=== PATIENT | female | born 1975 | race Caucasian/White ===

== ENCOUNTER 2019-09-15 22:39 | Emergency (ER) | payer SELFPAY ==
[2019-09-15 23:16] LABS: Basophils # 0.1 10^3/uL (0.0-0.1); Basophils % 0.5 %; Eosinophils # 0.2 10^3/uL (0.0-0.8); Hematocrit 45.6 % (37.0-47.0); Hemoglobin 15.2 g/dL (11.5-15.3); Lymphocytes # 3.5 10^3/uL (0.8-4.8); Lymphocytes % 33.6 %; Mean Corpuscular HGB Conc 33.3 g/dL (30.0-36.0); Mean Corpuscular Hemoglobin 32.6 pg (28.0-34.0); Mean Corpuscular Volume 97.9 fL (81-99); Mean Platelet Volume 9.7 fL (7.4-10.4); Monocytes # 0.8 10^3/uL (0.2-0.9); Monocytes % 7.4 %; Neutrophils % 56.2 %; Nucleated Red Blood Cells % 0 %; Platelet Count 274 10^3/cmm (130-400); Red Blood Count 4.66 10^6/uL (4.1-5.3); Red Cell Distribution Width 13.2 % (12.1-15.1); White Blood Count 10.5 10^3/uL (4.0-10.0)
[2019-09-15 23:28] LABS: Alanine Aminotransferase 10 U/L (0-33); Albumin Level 4.4 g/dL (3.5-5.2); Alkaline Phosphatase 71 IU/L (35-105); Anion Gap 14.9 (5-19); Aspartate Amino Transferase 14 U/L (0-32); Blood Urea Nitrogen 9 mg/dL (6-20); Calcium 9.1 mg/dL (8.5-10.5); Carbon Dioxide 25 mmol/L (22-29); Chloride 96 mmol/L (98-107); Globulin 2.8 g/dL (1.3-4.6); Glomerular Filtration Rate 90.1 mL/min (90-130); Glucose 91 mg/dL (65-115); Lipase 48 U/L (13-60); Osmolality Calculated 270 mOsm/kg (285-295); Potassium 3.9 mmol/L (3.5-5.1); Sodium 132 mmol/L (136-145); Total Bilirubin 0.2 mg/dL (0.15-1.2); Total Protein 7.2 g/dL (6.6-8.7)
== END 2019-09-16 00:04 ==
PROVIDERS: Emergency Provider Emergency Medicine
DX: Z53.21 Procedure and treatment not carried out due to patient leaving prior to being seen by health care provider (principal)
CPT/HCPCS: 36415; 80053; 83690; 85025; 99281

== ENCOUNTER 2022-02-25 12:41 | Emergency (ER) | payer SELFPAY ==
[2022-02-25 14:18] VITALS: BP 195/105; PULSE 86; RESP 14; TEMP 36.7; O2SAT 99
--- NOTE | 2022-02-25 14:39 | ED_ITS ---
HPI - General Adult General: Chief complaint: General Medical Stated complaint: right side pain Time Seen by Provider: 02/25/22 14:34 History of Present Illness: Patient is a 46-year-old female comes to the ED with abdominal pain. Symptoms started approximately 10 days ago. Pain is located in the right upper quadrant of the abdomen. She rates her pain currently a 2 out of 10. She states that the pain comes and goes and fluctuates in intensity. Denies any worsening or improving factors. Pain will radiate to the middle of her back and up into her right upper back as well. Endorses having episodes of nausea with pain but denies any vomiting. Past surgical history of partial hysterectomy. Associated symptoms: Reports nausea; Deny chest pain, dyspnea, headache(s), rash, palpitations or vomiting Review of Systems Const: Denies: fever(s), chills or fatigue Eyes: Denies: change in vision or eye discomfort ENMT: Denies: throat pain, odynophagia, nasal discharge or nasal congestion Card: Denies: chest pain, palpitations, edema, swelling of feet/ankles, dyspnea on exertion or orthopnea Resp: Denies: dyspnea, productive cough or non-productive cough GI: Reports: abdominal pain and nausea; Denies: vomiting, diarrhea, constipation or hematochezia : Denies: flank pain, dysuria or hematuria Musc: Denies: neck pain, back pain or extremity swelling Skin/Breast: Denies: rash or new lesions Neuro: Denies: headache(s), numbness in extremities or weakness in extremities PFS ED PFSH: Medical History Chest wall pain Hypertension Surgical History History of partial hysterectomy Family History Mother Heart murmur Father Diabetes Other Cancer Hypertension Myocardial infarct Denies family history of CAD (coronary artery disease) Clotting disorder Dementia Hyperlipidemia Psychiatric illness Chronic kidney disease (CKD) Anesthesia complication Bleeding disorder Lung disease Stroke Social History (Updated 02/06/22 @ 13:05 by Milena Rodriguez LPN) Smoking and tobacco status: current every day smoker cigarettes Packs smoked per day: 0.75 [ Other cigarette details: 3/4PPD, 28PY] Alcohol intake: current Alcohol intake frequency: few times a week Desire information about alcohol rehabilitation?: No Desire information about substance/drug rehabilitation?: No Lives independently: Yes Marital status: Number of children: 2 Current occupational status: employed 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 gender identity: Female Female Reproductive History: Date of last menstrual period: 02/17/21 Para: 2 Physical Exam Const: COMMON NORMALS: no acute distress and patient oriented x3 GENERAL APPEARANCE: cooperative and comfortable HENMT: COMMON NORMALS: normocephalic HEAD & SCALP: normocephalic MOUTH: Normal oral and palatal mucosa present THROAT: posterior oropharynx normal and uvula midline Neck/C-Spine: COMMON NORMALS: supple GENERAL: Yes normal visual inspection Resp: COMMON NORMALS: normal respiratory effort, No retractions, No use of accessory muscles and clear to auscultation bilaterally AUSCULTATION: clear to auscultation bilaterally Cardio: COMMON NORMALS: regular rate, regular rhythm, S1 normal heart sound present, S2 normal heart sound present, No gallops present (Cardio), No clicks present (Cardio), No murmurs present (Cardio) and Peripheral pulses 2+ throughout RATE: regular rate RHYTHM: regular rhythm HEART SOUNDS: S1 normal heart sound present and S2 normal heart sound present PERIPHERAL PULSES: Peripheral pulses 2+ throughout GI: COMMON NORMALS: Normal to inspection, nondistended, normoactive bowel sounds present, Soft to palpation and no masses PALPATION: Yes Soft to p alpation and Yes Tenderness to palpation present (GI) Details: RUQ : COMMON NORMALS: Yes no CVA tenderness BLADDER/KIDNEY EXAM: Yes no CVA tenderness Back/Pelvis: COMMON NORMALS: no CVA tenderness Extremity: COMMON NORMALS: normal to inspection Neuro: COMMON NORMALS: patient oriented x3 GAIT: Yes Normal gait present Skin: GENERAL SKIN EXAM: dry skin Course Vital Signs: Vital signs: Vital Signs Temperature 98.0 F 02/25/22 14:18 Pulse Rate 86 02/25/22 17:20 Respiratory Rate 16 02/25/22 17:20 Blood Pressure 157/111 02/25/22 17:20 Pulse Oximetry 94 02/25/22 17:20 Oxygen Delivery Me thod 02/25/22 14:18 [facility] - General Adult Medical Decision Making Patient is a 46-year-old female comes to the ED with abdominal pain. Symptoms started approximately 10 days ago. Pain is located in the right upper quadrant of the abdomen. She rates her pain currently a 2 out of 10. She states that the pain comes and goes and fluctuates in intensity. Denies any worsening or improving factors. Vitals are stable. Some mild right upper quadrant tenderness but rest of exam is benign. Patient appears nontoxic and in no acute distress. Labs are unremarkable. Ultrasound gallbladder showed no acute findin gs. Patient was diagnosed with abdominal pain and was stable for discharge home. She was told to follow-up with PCP in the next week for reevaluation. Patient understood and agreed with plan. Lab Data I reviewed the patient's lab results. 02/25/22 15:00 02/25/22 15:20 Radiology Impressions Gallbladder Ultrasound 02/25/22 15:27 IMPRESSION: No acute findings. Laboratory Results WBC 9.5 10^3/uL (4.0-10.0) 02/25/22 15:00 RBC 5.20 10^6/uL (4.1-5.3) 02/25/22 15:00 Hgb 16.5 g/dL (11.5-15.3) H 02/25/22 15:00 Hct 49.4 % (37.0-47.0) H 02/25/22 15:00 MCV 95.0 fl (81-99) 02/25/22 15:00 MCH 31.7 pg (28.0-34.0) 02/25/22 15:00 MCHC 33.4 g/dL (30.0-36.0) 02/25/22 15:00 RDW 13.2 % (12.1-15.1) 02/25/22 15:00 Plt Count 283 10^3/cmm (130-400) 02/25/22 15:00 MPV 10.0 fL (7.4-10.4) 02/25/22 15:00 Neut % (Auto) 70.2 % 02/25/22 15:00 Lymph % (Auto) 22.3 % 02/25/22 15:00 [place] % (Auto) 6.1 % 02/25/22 15:00 Eos % (Auto) 0.9 % 02/25/22 15:00 Baso % (Auto) 0.3 % 02/25/22 15:00 Neut # (Auto) 6.69 10^3/uL (1.8-7.7) 02/25/22 15:00 Lymph # (Auto) 2.1 10^3/uL (0.8-4.8) 02/25/22 15:00 [place] # (Auto) 0.6 10^3/uL (0.2-0.9) 02/25/22 15:00 Eos # (Auto) 0.1 10^3/uL (0.0-0.8) 02/25/22 15:00 Baso # (Auto) 0.0 10^3/uL (0.0-0.1) 02/25/22 15:00 Nucleated RBC % (auto) 0 % 02/25/22 15:00 Nucleated RBCs # 0.0 /100WBC 02/25/22 15:00 Sodium 135 mmol/L (136-145) L 02/25/22 15:20 Potassium 4.0 mmol/L (3.5-5.1) 02/25/22 15:20 Chloride 98 mmol/L (98-107) 02/25/22 15:20 Carbon Dioxide 25 mmol/L (22-29) 02/25/22 15:20 Anion Gap 16.0 (5-19) 02/25/22 15:20 BUN 12 mg/dL (6-20) 02/25/22 15:20 Creatinine 0.5 mg/dL (0.5-0.9) 02/25/22 15:20 GFR Calculation 131.7 mL/min (90-130) H 02/25/22 15:20 Glucose 85 mg/dL (65-115) 02/25/22 15:20 Calculated Osmolality 279 mOsm/kg (285-295) L 02/25/22 15:20 Calcium 9.0 mg/dL (8.5-10.5) 02/25/22 15:20 Total Bilirubin 0.2 mg/dL (0.15-1.2) 02/25/22 15:20 AST 13 U/L (0-32) 02/25/22 15:20 ALT 13 U/L (0-33) 02/25/22 15:20 Alkaline Phosphatase 84 U/L (35-105) 02/25/22 15:20 Total Protein 7.9 g/dL (6.6-8.7) 02/25/22 15:20 Albumin 4.6 g/dL (3.5-5.2) 02/25/22 15:20 Globulin 3.3 g/dL (1.3-4.6) 02/25/22 15:20 Lipase 44 U/L (13-60) 02/25/22 15:20 Urine Color Yellow (Yellow) 02/25/22 15:00 Urine Appearance Clear (CLEAR) 02/25/22 15:00 Urine pH 6.5 (5-7) 02/25/22 15:00 Ur Specific [place] 1.010 (1.005-1.030) 02/25/22 15:00 Urine Protein Neg (Negative) 02/25/22 15:00 Urine Glucose (UA) Norm (Normal) 02/25/22 15:00 Urine Ketones Negative (Negative) 02/25/22 15:00 Urine Blood Neg (Negative) 02/25/22 15:00 Urine Nitrate Negative (Negative) 02/25/22 15:00 Urine Bilirubin Neg (Negative) 02/25/22 15:00 Urine Urobilinogen Neg mg/dL (Negative) 02/25/22 15:00 Ur Leukocyte Esterase Negative (Negative) 02/25/22 15:00 Discharge Plan Discharge Patient Disposition: Home Clinical Impression: Abdominal pain Qualifiers: Abdominal location: right upper quadrant Qualified Code(s): R10.11 - Right upper quadrant pain Condition: Stable Prescriptions: New cyclobenzaprine 10 mg tablet 10 mg PO BID PRN (Reason: muscle spasms and pain) Qty: 12 0RF No Action Ozempic 0.25 mg or 0.5 mg(2 mg/1.5 mL) pen injector 0.25 mg SUBCUT Q7D Rx Instructions: 0.25mg weekly x 4 weeks,then 0.5mg weekly x 4 weeks, 1mg weekly x 4 weeks,then 1.7mg weekly x 4 weeks acetaminophen 325 mg Tablet 325 mg PO QID PRN (Reason: Pain) Discharge Orders: Discharge ED (Routine); Ordered 02/25/22 Ordered By: Rob Chauhan Discharge Diet: Regular Discharge Activity: Resume usual activity Patient Instructions: Abdominal Pain (ED) Activity Restrictions/Additional Instructions: Follow-up with medical provider as directed in the next 7 to 10 days for re evaluation. Take medications as prescribed. Return to the ER or your medical provider if condition worsens. Please read and understand discharge instructions. Thank you for choosing [facility] for your healthcare needs today. Please realize this is an emergency room and that we are providing you with a medical screening exam and this may not be complete and all inclusive of all the testing and or work up that you may need to determine your ailment or severity of your illness. It is very important that you follow up as instructed or that you return to the Emergency Department should you have concerns or if your condition changes or worsens in any way. Coding Level of Care Code ED Drivability Technician for Sima Fwamber Exam Comprehensive
[2022-02-25 15:16] LABS: Basophils % 0.3 %; Eosinophils # 0.1 10^3/uL (0.0-0.8); Eosinophils % 0.9 %; Hematocrit 49.4 % (37.0-47.0); Hemoglobin 16.5 g/dL (11.5-15.3); Lymphocytes # 2.1 10^3/uL (0.8-4.8); Lymphocytes % 22.3 %; Mean Corpuscular HGB Conc 33.4 g/dL (30.0-36.0); Mean Corpuscular Hemoglobin 31.7 pg (28.0-34.0); Monocytes # 0.6 10^3/uL (0.2-0.9); Monocytes % 6.1 %; Neutrophils # 6.69 10^3/uL (1.8-7.7); Neutrophils % 70.2 %; Nucleated Red Blood Cells % 0 %; Platelet Count 283 10^3/cmm (130-400); Red Cell Distribution Width 13.2 % (12.1-15.1); White Blood Count 9.5 10^3/uL (4.0-10.0)
[2022-02-25 15:17] LABS: Add Urine Microscopic? NO; Charge for UA Resulting for Rev
--- NOTE | 2022-02-25 15:22 | ECG_ITS ---
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 Measurements Intervals [place] Rate: 68 P: 49 FL: 158 QRS: 60 QRSD: 82 T: 43 QT: 387 QTc: 413 Interpretive Statements SINUS RHYTHM No previous ECG available for comparison Electronically Signed On 02-25-2022 20:32:59 OWNER PROFESSIONAL ENGINEER by Cinthia Bower M.D. [id number]
--- NOTE | 2022-02-25 15:27 | USR_ITS ---
PROCEDURE INFORMATION: Exam: US Abdomen, Limited; Right Upper Quadrant Exam date and time: 02/25/2022 4:01 PM Age: 46 years old Clinical indication: Abdominal pain; Generalized; Additional info: Ruq pain TECHNIQUE: Imaging protocol: Real time ultrasound of the abdomen with image documentation. Limited exam focused on the right upper quadrant. COMPARISON: No relevant prior studies available. FINDINGS: Liver: The liver shows no solid mass. No visualized ascites. Gallbladder: The gallbladder shows no stones and has no wall thickening. Biliary ducts: No evidence of intrahepatic biliary dilation. No CBD dilation. Pancreas: The pancreas is not well seen due to overlying bowel gas. It shows no focal abnormality, however. Right kidney: Unremarkable. No solid renal mass or hydronephrosis. US/US gall bladder [id number] IMPRESSION: No acute findings.
[2022-02-25 15:38] LABS: Bilirubin Urine Neg (Negative); Blood Urine Neg (Negative); Glucose Urine UA Norm (Normal); Ketones Urine Negative (Negative); Leukocyte Esterase Urine Negative (Negative); Nitrate Urine Negative (Negative); Protein Urine Neg (Negative); Urine Appearance Clear (CLEAR); Urine Color Yellow (Yellow); Urobilinogen Urine Neg (Negative); pH Urine 6.5 (5-7)
[2022-02-25 15:40] LABS: Alanine Aminotransferase 13 U/L (0-33); Albumin Level 4.6 g/dL (3.5-5.2); Alkaline Phosphatase 84 U/L (35-105); Aspartate Amino Transferase 13 U/L (0-32); Blood Urea Nitrogen 12 mg/dL (6-20); Carbon Dioxide 25 mmol/L (22-29); Chloride 98 mmol/L (98-107); Globulin 3.3 g/dL (1.3-4.6); Glomerular Filtration Rate 131.7 mL/min (90-130); Glucose 85 mg/dL (65-115); Lipase 44 U/L (13-60); Osmolality Calculated 279 mOsm/kg (285-295); Sodium 135 mmol/L (136-145); Total Bilirubin 0.2 mg/dL (0.15-1.2); Total Protein 7.9 g/dL (6.6-8.7)
[2022-02-25 17:20] VITALS: BP 157/111; PULSE 86; RESP 16; O2SAT 94
== END 2022-02-25 17:21 | disposition home or self-care (01) ==
PROVIDERS: Emergency Provider Physician Assistant
DX: R10.11 Right upper quadrant pain (principal); I10 Essential (primary) hypertension; F17.210 Nicotine dependence, cigarettes, uncomplicated
CPT/HCPCS: 76705; 80053; 81003; 83690; 85025; 93005; 99285

== ENCOUNTER 2022-09-25 19:58 | Emergency (ER) | payer SELFPAY ==
--- NOTE | 2022-09-25 19:59 | XRR_ITS ---
PROCEDURE INFORMATION: Exam: XR Chest Exam date and time: 09/25/2022 8:16 PM Age: 47 years old Clinical indication: Pain; Chest pressure; Additional info: Cp TECHNIQUE: Imaging protocol: Radiologic exam of the chest. Views: 1 view. COMPARISON: CR XR chest 1V [id number] 11/14/2018 11:46 AM FINDINGS: Lungs: Unremarkable. No consolidation. Pleural spaces: Unremarkable. No pleural effusion. No pneumothorax. Heart/Mediastinum: Unremarkable. No cardiomegaly. Bones/joints: Unremarkable. XR/XR chest 1V portable [id number] IMPRESSION: No acute findings.
--- NOTE | 2022-09-25 20:04 | ECG_ITS ---
[facility] Test Date: 2022-09-25 Pat Name: Peyton Mancuso Department: Room: Gender: Female Complaint Evaluation Supervisor: : 1975 Requested By: Yvette Mccabe Order Number: [id number] Willi MD: Polo Espinal M.D. Measurements Intervals [place] Rate: 92 P: 58 [place]: 137 QRS: 52 QRSD: 94 T: 51 QT: 346 QTc: 430 Interpretive Statements SINUS RHYTHM WITH SINUS ARRHYTHMIA Compared to ECG 02/25/2022 15:22:58 No significant changes Electronically Signed On 09-27-2022 9:28:15 CDT by Polo Espinal M.D. [id number]
[2022-09-25 20:06] VITALS: PULSE 94; RESP 16; TEMP 36.7; O2SAT 100; BMI 24.0
[2022-09-25 20:10] VITALS: BP 174/112
--- NOTE | 2022-09-25 20:21 | ED_ITS ---
HPI - Chest Pain General: Chief Complaint: Chest Pain Stated Complaint: chest pain,short of breath Time Seen by Provider: 09/25/22 20:09 Source: patient Mode of arrival: ambulatory Limitations: no limitations History of Present Illness: 47-year-old female who states that over the last 3 days she been having some intermittent chest pain states been a burning type pain states she also had some shortness of breath especially trying to take deep breaths. She denies any worsening improving factors she denies any pain currently states she is also had right upper quadrant abdominal pain over the last 7 months denies any abdominal pain currently but states she has had some pain there also over the last 2 days. Denies fever or cough. Associated symptoms: Reports abdominal pain; Deny dyspnea, fever(s), nausea or vomiting Review of Systems Const: Denies: fever(s), chills, body aches or change in appetite ENMT: Denies: throat pain or dental pain Card: Reports: chest pain Resp: Denies: dyspnea GI: Reports: abdominal pain; Denies: nausea, vomiting or diarrhea : Denies: dysuria Musc: Denies: neck pain or back pain Skin/Breast: Denies: rash Neuro: Denies: headache(s) PFSH ED PFSH: Medical History Chest wall pain Hypertension Surgical History History of partial hysterectomy Family History Mother Heart murmur Father Diabetes Other Cancer Hypertension Myocardial infarct Denies family history of CAD (coronary artery disease) Clotting disorder Dementia Hyperlipidemia Psychiatric illness Chronic kidney disease (CKD) Anesthesia complication Bleeding disorder Lung disease Stroke Social History Smoking and tobacco status: current every day smoker cigarettes Packs smoked per day: 0.75 [ Other cigarette details: 3/4PPD, 28PY] Alcohol intake: current Alcohol intake frequency: few times a week Desire information about alcohol rehabilitation?: No Substance/Drug Use: current Substance/Drug use frequency: Special occassions/opportunity only Desire information about substance/drug rehabilitation?: No Lives independently: Yes Marital status: Number of children: 2 Current occupational status: employed Current occupation: [employer] Current gender identity: Female Female Reproductive History: Para: 2 Physical Exam Const: COMMON NORMALS: no acute distress, patient oriented x3 and healthy appearing Neck/C-Spine: COMMON NORMALS: full ROM and supple Chest: COMMONS NORMALS: normal inspection of the chest and normal palpation of entire chest wall Resp: COMMON NORMALS: normal respiratory effort, No retractions, No use of accessory muscles and clear to auscultation bilaterally AUSCULTATION: clear to auscultation bilaterally Cardio: COMMON NORMALS: regular rate, regular rhythm and No murmurs present (Cardio) RATE: regular rate RHYTHM: regular rhythm GI: COMMON NORMALS: Normal to inspection, nondistended, normoactive bowel sounds present, Soft to palpation, non-tender and no masses PALPATION: Yes Soft to palpation Extremity: COMMON NORMALS: normal to inspection and full ROM Neuro: COMMON NORMALS: patient oriented x3, moves all extremities and no focal motor deficits Psych: COMMON NORMALS: mental status grossly normal, Normal thought process present and cooperative THOUGHT PROCESS: Normal thought process present Skin: COMMON NORMALS: no rashes or lesions noted and no wounds GENERAL SKIN EXAM: no rashes or lesions noted Course Vital Signs: Vital signs: Vital Signs Temperature 98.1 F 09/25/22 20:06 Pulse Rate 73 09/25/22 21:36 Respiratory Rate 17 09/25/22 21:36 Blood Pressure 155/80 09/25/22 21:36 Pulse Oximetry 97 09/25/22 21:36 Oxygen Delivery Me thod Room Air 09/25/22 21:36 MDM - Chest Pain Medical Decision Making Patient presents for chest pain along with abdominal pain her abdominal pains been going on for months ultrasound of her gallbladder here is normal blood work here is all normal including a negative D-dimer both tropes are normal no signs of acute coronary syndrome she is stable for discharge she is to follow-up with her PCP we will get her surgery follow-up for her abdominal pain she is return if worsening she understands agrees to plan. Medical Records I reviewed the patient's medical records. Lab Data I reviewed the patient's lab results. 09/25/22 20:25 09/25/22 20:25 Radiology Impressions Chest X-Ray 09/25/22 19:59 IMPRESSION: No acute findings. Gallbladder Ultrasound 09/25/22 20:23 IMPRESSION: No acute findings. Laboratory Results WBC 8.1 10^3/uL (4.0-10.0) 09/25/22 20: RBC 5.01 10^6/uL (4.1-5.3) 09/25/22 20: Hgb 16.5 g/dL (11.5-15.3) H 09/25/22 20:25 Hct 47.8 % (37.0-47.0) H 09/25/22 20: MCV 95.4 fl (81-99) 09/25/22 20: MCH 32.9 pg (28.0-34.0) 09/25/22 20: MCHC 34.5 g/dL (30.0-36.0) 09/25/22: RDW 14.8 % (12.1-15.1) 09/25/22: Plt Count 310 10^3/cmm (130-400) 09/25/22: MPV 9.5 fL (7.4-10.4) 09/25/22 20: Neut % (Auto) 48.4 % 09/25/22 20: Lymph % (Auto) 41.9 % 09/25/22 20: [place] % (Auto) 7.7 % 09/25/22: Eos % (Auto) 1.4 % 09/25/22: Baso % (Auto) 0.4 % 09/25/22: Neut # (Auto) 3.90 10^3/uL (1.8-7.7) 09/25/22: Lymph # (Auto) 3.4 10^3/uL (0.8-4.8) 09/25/22 20: [place] # (Auto) 0.6 10^3/uL (0.2-0.9) 09/25/22: Eos # (Auto) 0.1 10^3/uL (0.0-0.8) 09/25/22 20: Baso # (Auto) 0.0 10^3/uL (0.0-0.1) 09/25/22: Nucleated RBC % (auto) 0 % 09/25/22:25 Nucleated RBCs # 0.0 /100WBC 09/25/22 20:25 PT 12.20 SECONDS (12.1-14.9) 09/25/22 20:25 INR 0.88 (0.8-1.2) 09/25/22 20:25 D-Dimer <= 0.27 ug/mIFEU (0-0.59) 09/25/22 20:25 Sodium 138 mmol/L (136-145) 09/25/22 20:25 Potassium 4.1 mmol/L (3.5-5.1) 09/25/22 20:25 Chloride 99 mmol/L (98-107) 09/25/22 20:25 Carbon Dioxide 28 mmol/L (22-29) 09/25/22 20:25 Anion Gap 15.1 (5-19) 09/25/22 20:25 BUN 10 mg/dL (6-20) 09/25/22 20:25 Creatinine 0.7 mg/dL (0.5-0.9) 09/25/22 20:25 GFR Calculation 88.9 mL/min (90-130) L 09/25/22 20:25 Glucose 108 mg/dL (65-115) 09/25/22 20:25 Calculated Osmolality 286 mOsm/kg (285-295) 09/25/22 20:25 Calcium 9.9 mg/dL (8.5-10.5) 09/25/22 20:25 Total Bilirubin 0.3 mg/dL (0.15-1.2) 09/25/22 20:25 AST 19 U/L (0-32) 09/25/22 20:25 ALT 18 U/L (0-33) 09/25/22 20:25 Alkaline Phosphatase 83 U/L (35-105) 09/25/22 20:25 Troponin T Baseline 8 ng/L (0-10) 09/25/22 20:25 Troponin T 120 Minute 6.06 ng/L (0-10) 09/25/22 22:24 Delta Troponin T -1.94 ABS# (0-10) L 09/25/22 22:24 NT-Pro-B Natriuret Pep 109 pg/mL (0-125) 09/25/22 20:25 Total Protein 7.6 g/dL (6.6-8.7) 09/25/22 20:25 Albumin 5.0 g/dL (3.5-5.2) 09/25/22 20:25 Globulin 2.6 g/dL (1.3-4.6) 09/25/22 20:25 Discharge Plan Discharge Patient Disposition: Home Clinical Impression: Chest pain, Abdominal pain Condition: Stable Prescriptions: No Action Victoza 3-Lj 0.6 mg/0.1 mL (18 mg/3 mL) pen injector See Rx Instructions SUBCUT .COMPLEX 60 Days Qty: 9 0RF Rx Instructions: inject 0.6mg subcutaneously once daily x 7 days; then 1.2mg daily cyclobenzaprine 10 mg tablet See Rx Instructions .ROUTE .COMPLEX Qty: 30 0RF Dose Instruction: TAKE 1 TABLET BY MOUTH TWICE DAILY NEEDED FOR MUSCLE SPASMS Rx Instructions: TAKE 1 TABLET BY MOUTH TWICE DAILY NEEDED FOR MUSCLE SPASMS acetaminophen 325 mg Tablet 325 mg PO QID PRN (Reason: Pain) Discharge Orders: Discharge ED (Routine); Ordered 09/25/22 Ordered By: Yvette Mccabe Referrals: Gino Griffin DO [Physician] - 1-3 days Devon Rebolledo MD [Primary Care Provider] - 1-3 days Discharge Diet: Advance as tolerated Discharge Activity: Resume usual activity Patient Instructions: Chest Pain (ED), Abdominal Pain (ED) Coding Level of Care Code ED Muck Miner for Sima Werner
--- NOTE | 2022-09-25 20:23 | USR_ITS ---
PROCEDURE INFORMATION: Exam: US Abdomen, Limited; Right Upper Quadrant Exam date and time: 09/25/2022 8:54 PM Age: 47 years old Clinical indication: Patient HX: Came to er for chest pain, shorness of breath, some ruq pain. Ate full dinner just before coming to er TECHNIQUE: Imaging protocol: Real time ultrasound of the abdomen with image documentation. Limited exam focused on the right upper quadrant. COMPARISON: US gall bladder [id number] 02/25/2022 4:01 PM FINDINGS: Liver: Normal. No masses. Gallbladder: Normal. No gallstones. There is no gallbladder wall thickening. Biliary ducts: Normal. No stones. No dilation. Pancreas: Visualized pancreas is unremarkable. Right kidney: Normal. No mass. No hydronephrosis. US/US gall bladder [id number] IMPRESSION: No acute findings.
[2022-09-25 20:35] LABS: Basophils % 0.4 %; Eosinophils # 0.1 10^3/uL (0.0-0.8); Eosinophils % 1.4 %; Hematocrit 47.8 % (37.0-47.0); Hemoglobin 16.5 g/dL (11.5-15.3); Lymphocytes # 3.4 10^3/uL (0.8-4.8); Lymphocytes % 41.9 %; Mean Corpuscular HGB Conc 34.5 g/dL (30.0-36.0); Mean Corpuscular Hemoglobin 32.9 pg (28.0-34.0); Mean Corpuscular Volume 95.4 fl (81-99); Mean Platelet Volume 9.5 fL (7.4-10.4); Monocytes # 0.6 10^3/uL (0.2-0.9); Monocytes % 7.7 %; Neutrophils % 48.4 %; Nucleated Red Blood Cells % 0 %; Platelet Count 310 10^3/cmm (130-400); Red Blood Count 5.01 10^6/uL (4.1-5.3); Red Cell Distribution Width 14.8 % (12.1-15.1); White Blood Count 8.1 10^3/uL (4.0-10.0)
[2022-09-25 20:54] LABS: Troponin(5th) Baseline 8 ng/L (0-10)
[2022-09-25 21:01] LABS: Alanine Aminotransferase 18 U/L (0-33); Alkaline Phosphatase 83 U/L (35-105); Anion Gap 15.1 (5-19); Aspartate Amino Transferase 19 U/L (0-32); Blood Urea Nitrogen 10 mg/dL (6-20); Calcium 9.9 mg/dL (8.5-10.5); Carbon Dioxide 28 mmol/L (22-29); Chloride 99 mmol/L (98-107); Globulin 2.6 g/dL (1.3-4.6); Glomerular Filtration Rate 88.9 mL/min (90-130); Glucose 108 mg/dL (65-115); NT Pro B Type Natriuretic Pept 109 pg/mL (0-125); Osmolality Calculated 286 mOsm/kg (285-295); Potassium 4.1 mmol/L (3.5-5.1); Sodium 138 mmol/L (136-145); Total Bilirubin 0.3 mg/dL (0.15-1.2); Total Protein 7.6 g/dL (6.6-8.7)
[2022-09-25 21:14] LABS: INR 0.88 (0.8-1.2)
[2022-09-25 21:17] LABS: D Dimer <= 0.27 ug/mIFEU (0-0.59)
[2022-09-25 21:36] VITALS: BP 155/80; PULSE 73; RESP 17; O2SAT 97
--- NOTE | 2022-09-25 21:56 | ECG_ITS ---
[facility] Test Date: 2022-09-25 Pat Name: Peyton Mancuso Department: Room: Gender: Female Inspector Fuel Hose: : 1975 Requested By: Yvette Mccabe Order Number: [id number] Willi MD: Polo Espinal M.D. Measurements Intervals [place] Rate: 79 P: 52 AL: 151 QRS: 66 QRSD: 98 T: 50 QT: 385 QTc: 441 Interpretive Statements SINUS RHYTHM Compared to ECG 09/25/2022 20:04:08 Sinus arrhythmia no longer present Electronically Signed On 09-27-2022 9:31:51 CDT by Polo Espinal M.D. [email or web address] [email or web address] [email or web address] county [email or web address]/OM/[id number]
[2022-09-25 22:57] LABS: Troponin 5 2HR 6.06 ng/L (0-10); Troponin 5 2HR Delta -1.94 ABS# (0-10)
[2022-09-25 23:23] VITALS: BP 135/96; PULSE 87; RESP 18; O2SAT 98
--- NOTE | 2022-09-26 07:43 | DCPLANNER ---
Addendum entered by Chica Tirado 10/02/22 11:49: regulatory affairs manager received the following message from the general surgery clinic regarding follow up appointment: due to no insurance and balance on account patient has been mailed a FA form. Original Note: regulatory affairs manager had message to schedule a follow up appointment for patient with general surgery. regulatory affairs manager sent patients information to the front office staff at general surgery. Patients information will be printed and reviewed. Clinic will call patient with appointment information.
== END 2022-09-25 23:25 | disposition home or self-care (01) ==
PROVIDERS: Emergency Provider Emergency Medicine; PCP Family Medicine
DX: R07.9 Chest pain, unspecified (principal); I10 Essential (primary) hypertension; F17.210 Nicotine dependence, cigarettes, uncomplicated; R10.11 Right upper quadrant pain
CPT/HCPCS: 71045; 76705; 80053; 83880; 84484; 85025; 85378; 85610; 93005; 99285

== ENCOUNTER 2023-01-21 08:05 | Outpatient (CLI) | payer OTHER, SELFPAY ==
--- NOTE | 2023-01-21 08:53 | MM_ITS ---
WS: [id number] BILATERAL 3D TOMOSYNTHESIS DIGITAL SCREENING MAMMOGRAPHY WITH CAD CLINICAL INFORMATION: SCREENING HISTORY: Screening mammogram. Chronic breast soreness. COMPARISON: 2013 TECHNIQUE: Bilateral CC and MLO views. FINDINGS: Scattered fibroglandular densities bilaterally. No suspicious focal mass, asymmetry, calcifications, or architectural distortion. No evidence of malignancy. IMPRESSION: MM/[place] [id number] BI-RADS: 1-Negative FOLLOW UP: 1 Year Follow-up Recommend return to annual screening mammography.
== END 2023-01-21 08:06 | disposition home or self-care (01) ==
LOC: RAD 08:07
PROVIDERS: PCP Family Medicine; Visit Provider Family Medicine
DX: Z12.31 Encounter for screening mammogram for malignant neoplasm of breast (principal)
CPT/HCPCS: 77063; 77067

== ENCOUNTER 2023-05-15 14:36 | Emergency (ER) | payer SELFPAY ==
[2023-05-15 14:40] VITALS: BP 182/90; PULSE 113; RESP 18; TEMP 36.6; O2SAT 96
--- NOTE | 2023-05-15 15:23 | W.ED.ALLEREA ---
HPI - Allergic Reaction General: Chief complaint: Allergic Reaction Stated complaint: wasp sting Time Seen by Provider: 05/15/23 15:23 History of Present Illness: HPI narrative: 48-year-old female comes in today with complaints of wasp things to the back of her neck. Patient reports several stings. Since then patient has had increased hives, lip swelling, and tongue swelling. Patient denies any shortness of breath. Patient reports no nausea or vomiting. Skin is warm and dry. Patient does smoke tobacco. Patient blood pressure was elevated but she reports a history of whitecoat syndrome. Review of Systems General: Reports: 10 or more systems reviewed and unremarkable except in HPI and below PFSH ED PFSH: Medical History Chest wall pain Hypertension Surgical History History of partial hysterectomy Family History Mother Heart murmur Father Diabetes Other Cancer Hypertension Myocardial infarct Denies family history of CAD (coronary artery disease) Clotting disorder Dementia Hyperlipidemia Psychiatric illness Chronic kidney disease (CKD) Anesthesia complication Bleeding disorder Lung disease Stroke Social History (Updated 10/03/22 @ 13:44 by Milena Rodriguez LPN) Smoking and tobacco/nicotine status: current every day tobacco/nicotine user cigarettes Packs smoked per day: 1 [ Other cigarette details: 3/4PPD, 28PY] Alcohol intake: current Alcohol intake frequency: few times a week Substance/Drug Use: current Substance/Drug use frequency: Special occassions/opportunity only Lives independently: Yes Marital status: Number of children: 2 Current occupational status: employed 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 gender identity: Female Female Reproductive History: Para: 2 Physical Exam Const: COMMON NORMALS: alert HENMT: COMMON NORMALS: normocephalic HEAD & SCALP: normocephalic FACE & SINUS: other (Mild swelling of the upper lip) Neck/C-Spine: COMMON NORMALS: full ROM Chest: COMMONS NORMALS: normal inspection of the chest Resp: COMMON NORMALS: normal respiratory effort AUSCULTATION: wheezes Cardio: COMMON NORMALS: regular rate RATE: regular rate GI: COMMON NORMALS: non-tender Back/Pelvis: COMMON NORMALS: thoracic and lumbar spine normal to inspection Extremity: COMMON NORMALS: full ROM Neuro: SENSORIUM/ORIENTATION: Yes alert Skin: RASHES: rashes noted (Urticaria crash) Course Vital Signs: Vital signs: Vital Signs Temperature 98 F 05/15/23 14:40 Pulse Rate 89 05/15/23 16:13 Respiratory Rate 14 05/15/23 16:13 Blood Pressure 182/90 05/15/23 14:40 Pulse Oximetry 97 05/15/23 16:13 Oxygen Delivery Me thod Room Air 05/15/23 14:40 MDM - Allergic Reaction Medical Decision Making 48-year-old female comes in today for evaluation of hives secondary to wasp sting. On exam patient was found to have a urticarial rash generalized to the body. Some mild facial swelling with swelling of upper lip. Oral mucosa is normal. Posterior pharynx is normal. Patient had some wheezing in lung granados. Patient is a chronic tobacco user. Blood pressure was elevated at 182, and pulse of 113. Differential diagnosis includes not limited to anaphylaxis, allergic reaction, urticaria. No signs of severe distress was noted. Patient was medicated with 40 mg of famotidine IV, 25 mg of diphenhydramine IV, 6 mg of dexamethasone IV, and 0.3 mg of epinephrine IM. Patient full resolution of symptoms. Patient was monitored for 90 minutes and then was discharged home with a prescription for epinephrine autoinjectors. Patient reported understanding agreed to plan. No radiology studies performed this visit Discharge Plan Discharge Patient Disposition: Home Clinical Impression: Anaphylaxis Qualifiers: Encounter type: initial encounter Qualified Code(s): T78.2XXA - Anaphylactic shock, unspecified, initial encounter Condition: Stable Prescriptions: New epinephrine 0.3 mg/0.3 mL auto-injector 0.3 mg IM Q10M PRN (Reason: anaphylaxis) Qty: 2 0RF Rx Instructions: for 2 doses No Action Probiotic 3 billion cell Capsule 3,000 mmu cells PO DAILY Rx Instructions: administer with a meal Discharge Orders: Discharge ED (Routine); Ordered 05/15/23 Ordered By: Swapnil Carrero Referrals: Devon Rebolledo MD [Primary Care Provider] - Discharge Diet: Usual diet Discharge Activity: Increase activity as tolerated Patient Instructions: Epinephrine Self-Injection, Anaphylaxis (ED) Activity Restrictions/Additional Instructions: Continue with diphenhydramine 1 or 2 capsules every 4 hours as needed for itching or rash. Drink plenty of water with medications. Use epinephrine injection as needed for new occurrence of insect sting that causes hives, itchy throat, and swelling. After using the epinephrine injector you should be seen by a healthcare provider. Follow-up with primary care for further instructions. Return to ED for new concerns. Coding Level of Care Code ED Contract Assistant for Sima Werner
[2023-05-15] MEDS: diphenhydrAMINE 50 mg/mL SDV 1mL 25 MG IVP (15:38)
[2023-05-15] MEDS: dexamethasone 10 mg/mL INJ 6 MG IVP (15:39)
[2023-05-15] MEDS: EPINEPHrine 1 mg/mL INJ 0.299999999999999989 MG IM (15:41)
[2023-05-15] MEDS: famotidine 20 mg/2 mL INJ 40 MG IVP (15:41)
[2023-05-15 16:13] VITALS: PULSE 89; RESP 14; O2SAT 97
[2023-05-15 16:58] VITALS: BP 133/89; PULSE 89; O2SAT 98
== END 2023-05-15 16:59 | disposition home or self-care (01) ==
PROVIDERS: Emergency Provider Nurse Practitioner Family; PCP Family Medicine
DX: T63.461A Toxic effect of venom of wasps, accidental (unintentional), initial encounter (principal); T78.2XXA Anaphylactic shock, unspecified, initial encounter; X58.XXXA Exposure to other specified factors, initial encounter; I10 Essential (primary) hypertension; F17.210 Nicotine dependence, cigarettes, uncomplicated
CPT/HCPCS: 96372; 96374; 96375; 99284; J0171; J1100; J1200; J3490

== ENCOUNTER 2024-07-16 11:15 | Outpatient (CLI) | payer OTHER, SELFPAY ==
--- NOTE | 2024-07-16 11:22 | MM_ITS ---
WS: [id number] BILATERAL 3D TOMOSYNTHESIS DIGITAL SCREENING MAMMOGRAPHY WITH CAD CLINICAL INFORMATION: SCREENING HISTORY: Screening mammogram. No current complaints. COMPARISON: 2022 TECHNIQUE: Bilateral CC and MLO views. FINDINGS: Scattered fibroglandular densities bilaterally. No suspicious focal mass, asymmetry, calcifications, or architectural distortion. No evidence of malignancy. MM/MM scr BI tomosynthesis [id number] IMPRESSION: DENSITY: There are scattered areas of fibroglandular density. BI-RADS: 1 - Negative. FOLLOW UP: 1 Year Follow-up Recommend return to annual screening mammography.
== END 2024-07-16 11:16 | disposition home or self-care (01) ==
LOC: RAD 11:16
PROVIDERS: PCP Family Medicine; Visit Provider Family Medicine
DX: Z12.31 Encounter for screening mammogram for malignant neoplasm of breast (principal); R92.323 Mammographic fibroglandular density, bilateral breasts
CPT/HCPCS: 77063; 77067

== ENCOUNTER 2024-09-27 09:08 | Emergency (ER) | payer SELFPAY ==
[2024-09-27] VITALS (30 sets, daily range): BP systolic 143–200; BP diastolic 89–142; PULSE 66–96; RESP 16–29; TEMP 36.7; O2SAT 97–100; BMI 24.7
--- NOTE | 2024-09-27 09:37 | XRR_ITS ---
PROCEDURE INFORMATION: Exam: XR Chest Exam date and time: 09/27/2024 10:01 AM Age: 49 years old Clinical indication: Other: Dizziness TECHNIQUE: Imaging protocol: Radiologic exam of the chest. Views: 1 view. COMPARISON: CR XR chest 1V portable [id number] 09/25/2022 8:16 PM FINDINGS: Lungs: Unremarkable. No consolidation. Pleural spaces: Unremarkable. No pleural effusion. No pneumothorax. Heart/Mediastinum: Unremarkable. No cardiomegaly. Bones/joints: Unremarkable. XR/XR chest 1V portable [id number] IMPRESSION: No acute findings.
--- NOTE | 2024-09-27 09:37 | CT_ITS ---
WS: [id number] CT HEAD TECHNIQUE: Noncontrast CT of the head obtained from the skullbase to the vertex. CLINICAL INFORMATION: dizziness COMPARISON: None. DLP: 1125.[address] scans at [facility] use at least one of these dose optimization techniques: automated exposure control; mA and/or kV adjustment per patient size (includes targeted exams where dose is matched to clinical indication); or iterative reconstruction. FINDINGS: No evidence of intracranial hemorrhage or mass effect. Ventricular system and basal cisterns are patent. No extra-axial fluid collections. No evidence of mass or mass effect. Vascular calcification. Paranasal sinuses and mastoid air cells are well aerated. .Normal visualized soft tissues. CT/CT head wo con* [id number] IMPRESSION: 1. No evidence of intracranial hemorrhage or mass effect. 2. No acute intracranial findings.
--- NOTE | 2024-09-27 09:38 | ED_ITS ---
HPI - Dizziness 2 General: Chief Complaint: Dizziness Stated Complaint: dizzy, n/f Time Seen by Provider: 09/27/24 09:10 Source: patient Mode of arrival: ambulatory Limitations: no limitations History of Present Illness: HPI Narrative: Patient is a 49-year-old female who presents to the ED today complaining of dizziness, subjective low-grade fevers, recent tick bite as well as recent dental infection and overall feeling unwell. She states over the past week or so she has been using leftover antibiotics to treat a dental infection. She does feel like this has improved. She does report a recent tick bite to her right lower abdomen/pelvis region. Unknown for how long the tick was attached for. Does not provide any history that the tick was engorged. She states she never developed any type of surrounding erythema or lesion. She states yesterday she began feeling dizzy. She does feel like symptoms were better this morning but later returned. She states she does not feel nauseous and has not had episodes of vomiting. She was ambulatory back to her room here. During my examination with patient she was noted to be extremely hypertensive with blood pressures 200s/120s. She has no known history of hypertension and does not take any medication for this. She does report a history of whitecoat syndrome . MD elicited complaint: dizziness Onset (ago): day(s) (yesterday) Timing: gradual onset Severity: mild Description: room spinning History of similar symptoms: No Relieving factors: remaining still Associated symptoms: Denies chest pain, chills, malaise, nausea, nasal congestion, palpitations, syncope or vomiting Associated neuro symptoms: Deny confusion or numbness in extremities Stroke scale total: 0 Related Data Home Medications ?Medication ?Instructions ?Recorded ?Confirmed lactobacillus combination no.4 3 3,000 mmu cells PO DA RYAN 05/15/23 05/15/23 billion cell capsule (Probiotic) Previous Rx's ?Medication ?Instructions ?Recorded epinephrine 0.3 mg/0.3 mL 0.3 mg (0.3 mL) IM Q10M PRN 05/15/23 injection, auto-injector anaphylaxis #2 ea amoxicillin 500 mg capsule 500 mg PO BID 7 days #14 ca ps 09/27/24 meclizine 50 mg tablet 50 mg PO BID PRN dizziness # 14 tabs 09/27/24 metoprolol tartrate 25 mg tablet 25 mg PO DAILY #30 ta bs 09/27/24 Allergies Allergy/AdvReac Type Severity Reaction Status Date / Time naproxen Allergy Severe ALGY-Swell Verified 09/27/24 09:15 Lip/Tongue/Throat Sulfa (Sulfonamide Allergy Intermediate ALGY-Rash Verified 09/27/24 09:15 Antibiotics) Review of Systems 2 Const: Reports: fever(s) (subjective, low grade); Denies: chills, body aches, fatigue or malaise Eyes: Denies: change in vision, blurry vision, photophobia, floaters or seeing flashes ENMT: Reports: dental pain; Denies: throat pain, odynophagia, nasal discharge, nasal congestion or sinus pain Card: Denies: chest pain, palpitations, irregular heart rhythm, edema, swelling of feet/ankles, syncope, pre-syncope, dyspnea on exertion, orthopnea, leg pain with exertion or acrocyanosis Resp: Denies: dyspnea, productive cough or non-productive cough GI: Denies: abdominal pain, nausea, vomiting or diarrhea : Denies: flank pain or dysuria Musc: Denies: neck pain, back pain, extremity pain, extremity swelling, joint pain, joint swelling or joint redness Skin/Breast: Reports: other (tick bite) Neuro: Reports: dizziness; Denies: numbness in extremities, weakness in extremities, sensory changes, frequent falls, confusion, behavioral changes, Slurred speech present, difficulty communicating thoughts or seizure-like activity Psych: Reports: anxiety PFSH ED 2 PFSH: Medical History Chest wall pain Hypertension Surgical History History of partial hysterectomy Family History Mother Heart murmur Father Diabetes Other Cancer Hypertension Myocardial infarct Denies family history of CAD (coronary artery disease) Clotting disorder Dementia Hyperlipidemia Psychiatric illness Chronic kidney disease (CKD) Anesthesia complication Bleeding disorder Lung disease Stroke Social History Smoking and tobacco/nicotine status: current every day tobacco/nicotine user cigarettes Packs smoked per day: 1 [ Other cigarette details: 3/4PPD, 28PY] Alcohol intake: current Alcohol intake frequency: few times a week Substance/Drug Use: current Substance/Drug use frequency: Special occassions/opportunity only Lives independently: Yes Marital status: Number of children: 2 Current occupational status: employed 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 gender identity: Female Female Reproductive History: Para: 2 Physical Exam 2 Const: COMMON NORMALS: no acute distress, average body habitus, patient oriented x3, no limitations, healthy appearing, alert and well nourished G ENERAL APPEARANCE: cooperative ORIENTATION/CONSCIOUSNESS: Yes awake, Yes oriented to person, Yes oriented to place and Yes oriented to time HENMT: FACE & SINUS: normal facial exam and face symmetric MOUTH: Normal oral and palatal mucosa present, lip normal, tongue normal and Normal salivary glands and ducts present TEETH & GINGIVA: Yes other (no obvious dental abscess noted) THROAT: posterior oropharynx normal and tonsils normal Eye: COMMON NORMALS: Equal, round and reactive pupils present, EOMs intact bilaterally and conjunctivae normal GENERAL EYE: appearance normal, both eyes and all related structures and normal light reflex VISUAL ACUITY: Yes acuity normal ALIGNMENT: Yes alignment normal PERIORBITAL: periorbital findings normal CONJUNCTIVA: Yes conjunctivae normal PUPIL: Yes Equal, round and reactive pupils present DIRECT OPHTHALMOSCOPY: Yes normal light reflex O THER: slight horizontal nystagmus Neck/C-Spine: COMMON NORMALS: negative for no lymphadenopathy GENERAL: Yes normal visual inspection Resp: COMMON NORMALS: normal respiratory effort and clear to auscultation bilaterally AUSCULTATION: clear to auscultation bilaterally Cardio: COMMON NORMALS: regular rate and regular rhythm RATE: regular rate RHYTHM: regular rhythm GI: COMMON NORMALS: Normal to inspection, nondistended, normoactive bowel sounds present, Soft to palpation, non-tender, No hepatosplenomegaly present and no masses PALPATION: Yes Soft to palpation and Yes No hepatosplenomegaly present : COMMON NORMALS: Yes no CVA tenderness BLADDER/KIDNEY EXAM: Yes no CVA tenderness Back/Pelvis: COMMON NORMALS: no CVA tenderness, thoracic and lumbar spine normal to inspection and no thoracic nor lumbar tenderness Extremity: COMMON NORMALS: normal to inspection and full ROM GENERAL: Yes normal exam except as noted Neuro: COMMON NORMALS: patient oriented x3, moves all extremities, no focal motor deficits and no sensory deficits noted SENSORIUM/ORIENTATION: Yes alert, Yes oriented to person, Yes oriented to place and Yes oriented to time Skin: SKIN IMAGES (FEMALE): 1. small tick bite; no surrounding erythema Course 2 Vital Signs: Vital signs: Vital Signs Temperature 98.0 F 09/27/24 09:12 Pulse Rate 80 09/27/24 11:35 Respiratory Rate 19 H 09/27/24 11:35 Blood Pressure 144/94 09/27/24 11:35 Pulse Oximetry 98 09/27/24 11:35 Oxygen Delivery Me thod Room Air 09/27/24 09:12 MDM - Dizziness Medical Decision Making Patient's blood pressure down here in the emergency department and at time of reassessment systolics running in the 140s. Patient states she does feel better. She was ambulatory here in the emergency department without difficulty or assistance. Remainder of vitals are stable. Her blood work overall is unremarkable. EKG showing no abnormal arrhythmias. CT head was unremarkable. Will treat with antibiotics for potential dental infection-states she did have a recent dental extraction. Will place her on blood pressure medications and recommend she keep a log at home and follow-up with primary care later this week. No concern at this time for central etiology for her dizziness. Medical Records I reviewed the patient's medical records. Lab Data I reviewed the patient's lab results. 09/27/24 09:30 09/27/24 09:30 Radiology Impressions Chest X-Ray 09/27/24 09:37 IMPRESSION: No acute findings. Head CT 09/27/24 09:37 IMPRESSION: 1. No evidence of intracranial hemorrhage or mass effect. 2. No acute intracranial findings. Laboratory Results WBC 8.42 10^3/uL (3.29-11.43) 09/27/24 09:30 RBC 4.93 10^6/uL (3.85-5.65) 09/27/24 09:30 Hgb 15.80 g/dL (11.27-16.99) 09/27/24 09:30 Hct 46.8 % (36-47) 09/27/24 09:30 MCV 94.9 fl (85-98) 09/27/24 09:30 MCH 32.0 pg (27-33) 09/27/24 09:30 MCHC 33.8 g/dL (30-55) 09/27/24 09:30 RDW 13.5 % (12.1-15.1) 09/27/24 09:30 Plt Count 267 10^3/cmm (157-399) 09/27/24 09:30 MPV 9.6 fL (7.4-10.4) 09/27/24 09:30 Neut % (Auto) 79.9 % 09/27/24 09:30 Lymph % (Auto) 14.1 % 09/27/24 09:30 [place] % (Auto) 5.0 % 09/27/24 09:30 Eos % (Auto) 0.4 % 09/27/24 09:30 Baso % (Auto) 0.4 % 09/27/24 09:30 Neut # (Auto) 6.73 10^3/uL (1.8-7.7) 09/27/24 09:30 Lymph # (Auto) 1.2 10^3/uL (0.8-4.8) 09/27/24 09:30 [place] # (Auto) 0.4 10^3/uL (0.2-0.9) 09/27/24 09:30 Eos # (Auto) 0.0 10^3/uL (0.0-0.8) 09/27/24 09:30 Baso # (Auto) 0.0 10^3/uL (0.0-0.1) 09/27/24 09:30 Nucleated RBC % (auto) 0 % 09/27/24 09:30 Nucleated RBCs # 0.0 /100WBC 09/27/24 09:30 Sodium 135 mmol/L (136-145) L 09/27/24 09:30 Potassium 4.1 mmol/L (3.5-5.1) 09/27/24 09:30 Chloride 99 mmol/L (98-107) 09/27/24 09:30 Carbon Dioxide 25 mmol/L (22-29) 09/27/24 09:30 Anion Gap 15.1 (5-19) 09/27/24 09:30 BUN 11 mg/dL (6-20) 09/27/24 09:30 Creatinine 0.6 mg/dL (0.5-0.9) 09/27/24 09:30 GFR Calculation 105.4 mL/min (90-130) 09/27/24 09:30 Glucose 117 mg/dL (65-115) H 09/27/24 09:30 Calculated Osmolality 280 mOsm/kg (285-295) L 09/27/24 09:30 Calcium 9.3 mg/dL (8.5-10.5) 09/27/24 09:30 Total Bilirubin 0.3 mg/dL (0.15-1.2) 09/27/24 09:30 AST 23 U/L (0-32) 09/27/24 09:30 ALT 19 U/L (0-33) 09/27/24 09:30 Alkaline Phosphatase 90 U/L (35-105) 09/27/24 09:30 Total Protein 7.7 g/dL (6.6-8.7) 09/27/24 09:30 Albumin 4.5 g/dL (3.5-5.2) 09/27/24 09:30 Globulin 3.2 g/dL (1.3-4.6) 09/27/24 09:30 Urine Color Yellow (Yellow) 09/27/24 10:20 Urine Appearance Clear (CLEAR) 09/27/24 10:20 Urine pH 6.0 (5-7) 09/27/24 10:20 Ur Specific [place] 1.005 (1.005-1.030) 09/27/24 10:20 Urine Protein Negative (Negative) 09/27/24 10:20 Urine Glucose (UA) Negative (Normal) 09/27/24 10:20 Urine Ketones Negative (Negative) 09/27/24 10:20 Urine Blood Negative (Negative) 09/27/24 10:20 Urine Nitrate Negative (Negative) 09/27/24 10:20 Urine Bilirubin Negative (Negative) 09/27/24 10:20 Urine Urobilinogen 0.2 mg/dL (Negative) 09/27/24 10:20 Ur Leukocyte Esterase Negative (Negative) 09/27/24 10:20 Urine RBC 0-2 /hpf (0-2) 09/27/24 10:20 Urine WBC 0-5 /hpf (0-5) 09/27/24 10:20 Ur Squamous Epith Cells 0-5 /hpf (0-5) 09/27/24 10:20 Amorphous Sediment Not Reportable 09/27/24 10:20 Urine Bacteria None seen /hpf (NONE) 09/27/24 10:20 Hyaline Casts 0.40 /lpf 09/27/24 10:20 All radiology interpretation(s) finalized by discharge Discharge Plan Discharge Patient Disposition: Home Clinical Impression: Dizziness, Elevated blood-pressure reading without diagnosis of hypertension, Pain, dental Condition: Stable Prescriptions: New amoxicillin 500 mg capsule 500 mg PO BID 7 Days Qty: 14 0RF metoprolol tartrate 25 mg tablet 25 mg PO DAILY Qty: 30 0RF meclizine 50 mg tablet 50 mg PO BID PRN (Reason: dizziness) Qty: 14 0RF No Action Probiotic 3 billion cell Capsule 3,000 mmu cells PO DAILY Rx Instructions: administer with a meal epinephrine 0.3 mg/0.3 mL auto-injector 0.3 mg IM Q10M PRN (Reason: anaphylaxis) Qty: 2 0RF Rx Instructions: for 2 doses Discharge Orders: Discharge ED (Routine); Ordered 09/27/24 Ordered By: Jenise Lawson Patient Instructions: Patient Portal & Kyle Instructions Activity Restrictions/Additional Instructions: As we discussed, we will place you on antibiotics to help with your dental pain/possible infection. I would like you to begin keeping a blood pressure log at home as her blood pressures were significantly elevated here in the emergency department. Take blood pressure twice daily. If blood pressures are continually averaging greater than 140/90 please start the metoprolol. Continue to keep a log and follow-up with primary care as they will tailor this medication based on these logs. You may take the meclizine as needed for dizziness at home. This was the medication that was provided to you here in the emergency department. Print Language: Azeri Coding Level of Care Code ED Claims Sorter for Sima Werner
[2024-09-27 09:43] LABS: Hematocrit 46.8 % (36-47); Hemoglobin 15.80 g/dL (11.27-16.99); Mean Corpuscular HGB Conc 33.8 g/dL (30-55); Mean Corpuscular Hemoglobin 32.0 pg (27-33); Mean Corpuscular Volume 94.9 fl (85-98); Nucleated Red Blood Cells % 0 %; Platelet Count 267 10^3/cmm (157-399); Red Blood Count 4.93 10^6/uL (3.85-5.65); White Blood Count 8.42 10^3/uL (3.29-11.43)
--- NOTE | 2024-09-27 09:47 | ECG_ITS ---
[facility] [place] [facility] Date: 2024-09-27 Pat Name: Peyton Mancuso Department: Room: Gender: Female Fisher Lampara Net: : 1975 Requested By: Jenise Lawson Order Number: [id number] Willi MD: JHONY PATRICK Measurements Intervals [place] Rate: 66 P: 57 ID: 140 QRS: 60 QRSD: 98 T: 53 QT: 384 QTc: 403 Interpretive Statements SINUS RHYTHM Compared to ECG 09/25/2022 21:56:20 No significant changes Electronically Signed On 09-28-2024 20:11:37 CDT by JHONY PATRICK [email or web address]
[2024-09-27] MEDS: hyDRALAzine 20 mg/mL INJ 1 mL 10 MG IVP ×2 (09:51→10:44)
[2024-09-27] MEDS: metoprolol tartrate 1 mg/1 mL SDV 5 mL 5 MG IVP (09:55)
[2024-09-27 10:01] LABS: Alanine Aminotransferase 19 U/L (0-33); Albumin Level 4.5 g/dL (3.5-5.2); Alkaline Phosphatase 90 U/L (35-105); Anion Gap 15.1 (5-19); Aspartate Amino Transferase 23 U/L (0-32); Blood Urea Nitrogen 11 mg/dL (6-20); Calcium 9.3 mg/dL (8.5-10.5); Carbon Dioxide 25 mmol/L (22-29); Chloride 99 mmol/L (98-107); Creatinine Clr Calc Pharmacy 122.9341; Globulin 3.2 g/dL (1.3-4.6); Glucose 117 mg/dL (65-115); Osmolality Calculated 280 mOsm/kg (285-295); Potassium 4.1 mmol/L (3.5-5.1); Sodium 135 mmol/L (136-145); Total Protein 7.7 g/dL (6.6-8.7)
[2024-09-27 10:44] LABS: Glucose Urine UA Negative (Normal); Nitrate Urine Negative (Negative); Specific Gravity, Urine 1.005 (1.005-1.030)
[2024-09-27 10:51] LABS: Add Urine Microscopic? YES
--- OUTSIDE RECORDS SUMMARY | 2024-09-29 08:47 | XMS_ITS | Clinical Summary ---
Author Organization [facility] Address [address] [place] [address] Phone Care Team Providers [facility] Pharmacist Name Role Phone Unavailable Primary Care Provider Unavailabl e Allergies Active Allergy Reactions Criticality Noted Date Comments Naproxen Anaphylaxis High 12/07/2022 Sulfa (Sulfonamide Antibiotics) Rash Low 11/18 Medications sucralfate (CARAFATE) 1 gram tablet Take 1 Tablet (1 Gram) by mouth 4 times daily before meals and at bedtime. 40 Tablet 3 Active pantoprazole (PROTONIX) 40 mg Tablet, Delayed Release (E.C.) Take 1 Tablet (40 mg) by mouth daily. 60 Tablet 3 Active cyclobenzaprine (FLEXERIL) 10 mg tablet TAKE 1 TABLET BY MOUTH TWICE DAILY NEEDED FOR MUSCLE SPASMS 3 Active simethicone 125 mg Tablet, Chewable Dispense (3) 125 mg Simethicone chewable tablets with prep as directed. 3 Tablet 4 Active Active Problems No known active problems Family History Medical History Relation Name Comments Colon Cancer Neg Hx Social History Tobacco Use Types Packs/Day Years Used Date Smoking Tobacco: Every Day Cigarettes Smokeless Tobacco: Never Tobacco Cessation:Ready to Q uit: Not Asked; Counseling Given: Not Answered Alcohol Use Standard Drinks/Week Comments Yes 0 (1 standard drink = 0.6 oz pur e alcohol) occ Comments No Sex and Gender Information Value Date Recorded Sex Assigned at Not on file Legal Sex Female 11:25 AM CDT Gender Identity Not on file Sexual Orientation Not on file Last Filed Vital Signs Vital Sign Reading Time Taken Comments Blood Pressure 126/85 03/17/2023 2:32 PM COLLECTION SUPPORT SPECIALIST Pulse 78 03/17/2023 2:32 PM COLLECTION SUPPORT SPECIALIST Temperature 36.9 C (98.5 F) 12/07/2022 11:28 AM CDT Respiratory Rate 19 03/17/2023 2:32 PM COLLECTION SUPPORT SPECIALIST Oxygen Saturation 96% 03/17/2023 2:32 PM COLLECTION SUPPORT SPECIALIST Inhaled Oxygen Concentration - - Weight 78 kg (172 lb) 03/06/2023 2:20 PM COLLECTION SUPPORT SPECIALIST Height 175.3 cm (5' 9 ) 03/06/2023 2:20 PM COLLECTION SUPPORT SPECIALIST Body Mass Index 25.4 03/06/2023 2:20 PM COLLECTION SUPPORT SPECIALIST Plan of Treatment Health Maintenance Due Date Last Done Comments DTAP/TDAP/TD VACCINES (1 - Tdap) 1992 HEPATITIS B VACCINES (1 of 3 - 19+ 3-dose series) 1992 HPV/Cotest (21-29) 1994 CERVICAL CANCER SCREENING 05/08/2003 HPV/Cotest (30-65) 05/08/2003 PAP SMEAR 05/08/2003 BREAST CANCER SCREENING 2013 FIT-DNA Q 3 years 2018 FIT/FOBT Q 1 year 2018 Flex Sig/CT Colonography Q 5 years 2018 ZOSTER VACCINE (1 of 2) 05/08/2023 INFLUENZA VACCINE (#1) 2024 COLORECTAL SCREENING 03/17/2030 03/17/2023, 03/17/19 24 Colorectal Cancer Screening 03/17/2030 Procedures Procedure Name Priority Date/Time Associated Diagnosis Comments COLONOSCOPY REPORT 03/17/2023 2: 18 PM COLLECTION SUPPORT SPECIALIST from Last 3 Months or Most Recently Relevant to Health Maintenance Results * COLONOSCOPY REPORT (03/17/2023 2:18 PM COLLECTION SUPPORT SPECIALIST) Narrative Procedure Note Nicola Ibarra MD - 03/17/2023 2:18 PM CST [facility] GI Patient Name: Peyton Mancuso Procedure Date: 03/17/2023 Date of : 1975 Admit Type: Outpatient Age: 47 Attending MD: Nicola Ibarra , , Procedure: Colonoscopy Indications: Screening for colorectal malignant neoplasm, This is the patient's first colonoscopy Providers: Nicola Ibarra Referring MD: Medicines: Fentanyl 150 micrograms IV, Midazolam 7 mg IV, (medications documented represent total dosages for multiple procedures) Complications: No immediate complications. Procedure: After I obtained informed consent, the scope was passed under direct vision. Throughout the procedure, the patient's blood pressure, pulse, and oxygen saturations were monitored continuously. The Colonoscope was introduced through the anus and advanced to the cecum, identified by appendiceal orifice and ileocecal valve. The colonoscopy was performed without difficulty. The patient tolerated the procedure well. The quality of the bowel preparation was evaluated using the BBPS ([place] Bowel Preparation Scale) with scores of: Right Colon = 3, Transverse Colon = 3 and Left Colon = 3 (entire mucosa seen well with no residual staining, small fragments of stool or opaque liquid). The total BBPS score equals 9. Estimated Blood Loss: Estimated blood loss was minimal. Findings: An 8 mm polyp was found in the transverse colon. The polyp was sessile. The polyp was removed with a cold snare. Resection and retrieval were complete. The exam was otherwise without abnormality on direct and retroflexion views. Moderate Sedation: Moderate (conscious) sedation was administered by the nurse and supervised by the endoscopist. The following parameters were monitored: oxygen saturation, heart rate, blood pressure, respiratory rate, EKG, adequacy of pulmonary ventilation, and response to care. Total physician intraservice time was 20 minutes. Impression: - One 8 mm polyp in the transverse colon, removed with a cold snare. Resected and retrieved. - The examination was otherwise normal on direct and retroflexion views. Recommendation: - Await pathology results. - Thank you for the referral. Nicola Ibarra, 03/17/2023 2:18:36 PM Number of Addenda: 0 Note Initiated On: 03/17/2023 1:46 PM Scope Withdrawal Time 0 hours 6 minutes 40 seconds Scope In: 2:03:19 PM Scope Out: 2:12:19 PM [address] [place] Nicola Ibarra MD GI PROCEDURE ORDERABLES Final Result from Last 3 Months or Most Recently Relevant to Health Maintenance Advance Directives For more information, please contact: [phone] * Full Code (Latest Code Status on File) Date Activated Date Inactivated Comments 03/17/2023 1:29 PM 03/17/2023 5:00 PM
== END 2024-09-27 11:54 | disposition home or self-care (01) ==
PROVIDERS: Emergency Provider Physician Assistant
DX: R42 Dizziness and giddiness (principal); R03.0 Elevated blood-pressure reading, without diagnosis of hypertension; K08.89 Other specified disorders of teeth and supporting structures; F17.210 Nicotine dependence, cigarettes, uncomplicated; I10 Essential (primary) hypertension
CPT/HCPCS: 36415; 70450; 71045; 80053; 81001; 85025; 93005; 96374; 96375; 96376; 99285; J0360; J3490; J8597; J9999

== ENCOUNTER 2024-11-25 17:15 | Emergency (ER) | payer SELFPAY ==
[2024-11-25 17:29] VITALS: BP 144/105; PULSE 81; RESP 18; TEMP 36.7; O2SAT 99
[2024-11-25 17:31] VITALS: BP 144/105; PULSE 81; RESP 18; TEMP 36.7; O2SAT 99
--- NOTE | 2024-11-25 19:56 | CTR_ITS ---
PROCEDURE INFORMATION: Exam: CT Abdomen And Pelvis Without Contrast Exam date and time: 11/25/2024 8:38 PM Age: 49 years old Clinical indication: Abdominal pain; Additional info: Abdominal pain, low back pain TECHNIQUE: Imaging protocol: Computed tomography of the abdomen and pelvis without contrast. Radiation optimization: All CT scans at this facility use at least one of these dose optimization techniques: automated exposure control; mA and/or kV adjustment per patient size (includes targeted exams where dose is matched to clinical indication); or iterative reconstruction. COMPARISON: US gall bladder [id number] 09/25/2022 8:54 PM RADIATION DOSE METRICS: Total DLP (mGy-cm): 551.83 FINDINGS: Lungs: Hypoventilatory changes present dependent lungs. Liver: Unremarkable. No mass. Gallbladder and biliary ducts: Unremarkable. No calcified stones. No ductal dilation. Pancreas: Unremarkable. No ductal dilation. Spleen: Unremarkable. No splenomegaly. Adrenal glands: Normal. No mass. Kidneys and ureters: Unremarkable. No hydronephrosis. Stomach and bowel: Bowel demonstrate no obstruction Appendix: Appendix is normal. Intraperitoneal space: There is no intra abdominopelvic free air or free fluid demonstrated. Vasculature: Unremarkable. No abdominal aortic aneurysm. Lymph nodes: Unremarkable. No enlarged lymph nodes. Urinary bladder: Unremarkable as visualized. Reproductive: Unremarkable as visualized. Bones/joints: Abnormal areas of sclerosis present within the superior left femoral head correlate to exclude early development of avascular necrosis. Soft tissues: Unremarkable. CT/CT abdomen pelvis wo con [id number] IMPRESSION: No acute uterine localized inflammatory abnormalities present abdomen and pelvis Suspicion of possibility of avascular necrosis of the presentation of left femoral head further workup recommended questionable finding.
--- NOTE | 2024-11-25 19:58 | ED_ITS ---
HPI - Back Pain/Injury General: Chief Complaint: Back Pain/Injury Stated Complaint: Hurt Back ABD Pain Time Seen by Provider: 11/25/24 19:30 History of Present Illness: Patient is a pleasant 49-year-old female with history of HTN, that presented to the emergency room due to low back pain, and abdominal pain. Patient went to the [employer] patch this past Friday, slid down the slide, and at the bottom of the slide, she felt like her back pushed itself together, and she has had bilat eral flank pain, low back pain, right upper, and left upper abdominal pain. Denies recent history of alcohol intake. Denies history of pancreatitis. No nausea, or vomiting. Her pain is with movement. It worsens with movement. She never had a history of low back pain in the past. Associated symptoms: Reports abdominal pain and nausea; Deny chills, fever(s), urinary urgency or vomiting Related Data Home Medications ?Medication ?Instructions ?Recorded ?Confirmed lactobacillus combination no.4 3 3,000 mmu cells PO DA RYAN 05/15/23 05/15/23 billion cell capsule (Probiotic) Previous Rx's ?Medication ?Instructions ?Recorded epinephrine 0.3 mg/0.3 mL 0.3 mg (0.3 mL) IM Q10M PRN 05/15/23 injection, auto-injector anaphylaxis #2 ea meclizine 50 mg tablet 50 mg PO BID PRN dizziness # 14 tabs 09/27/24 metoprolol tartrate 25 mg tablet 25 mg PO DAILY #30 ta bs 09/27/24 ketorolac 10 mg tablet 10 mg PO Q8H PRN pain 5 days #20 11/25/24 tabs methocarbamol 750 mg tablet 750 mg PO Q8H PRN muscle s pasm #30 11/25/24 tabs Allergies Allergy/AdvReac Type Severity Reaction Status Date / Time naproxen Allergy Severe ALGY-Swell Verified 09/27/24 09:15 Lip/Tongue/Throat Sulfa (Sulfonamide Allergy Intermediate ALGY-Rash Verified 09/27/24 09:15 Antibiotics) Review of Systems General: Reports: 10 or more systems reviewed and unremarkable except in HPI and below Const: Denies: fever(s) or chills Eyes: Denies: change in vision or blurry vision ENMT: Denies: throat pain, epistaxis or post nasal drip Card: Denies: chest pain or palpitations Resp: Denies: dyspnea or productive cough GI: Reports: abdominal pain and nausea; Denies: vomiting : Reports: flank pain; Denies: difficulty voiding, urinary urgency or pelvic pain Musc: Reports: back pain, joint pain and joint stiffness; Denies: neck pain, extremity pain, joint swelling, joint redness or joint warmth Neuro: Denies: headache(s), numbness in extremities, weakness in extremities or sensory changes PFSH ED PFSH: Medical History (Updated 11/25/24 @ 22:05 by ULISES Timmons) Chest wall pain Hypertension Surgical History History of partial hysterectomy Family History Mother Heart murmur Father Diabetes Other Cancer Hypertension Myocardial infarct Denies family history of CAD (coronary artery disease) Clotting disorder Dementia Hyperlipidemia Psychiatric illness Chronic kidney disease (CKD) Anesthesia complication Bleeding disorder Lung disease Stroke Social History Smoking and tobacco/nicotine status: current every day tobacco/nicotine user cigarettes Packs smoked per day: 1 [ Other cigarette details: 3/4PPD, 28PY] Alcohol intake: current Alcohol intake frequency: few times a week Substance/Drug Use: current Substance/Drug use frequency: Special occassions/opportunity only Lives independently: Yes Marital status: Number of children: 2 Current occupational status: employed 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 gender identity: Female Female Reproductive History: Para: 2 Physical Exam Const: COMMON NORMALS: no acute distress, average body habitus and patient oriented x3 HENMT: COMMON NORMALS: normocephalic and atraumatic HEAD & SCALP: normocephalic and atraumatic Lymph: LYMPHATIC: no lymphadenopathy noted Resp: COMMON NORMALS: normal respiratory effort, No retractions, No use of accessory muscles and clear to auscultation bilaterally AUSCULTATION: clear to auscultation bilaterally Cardio: COMMON NORMALS: regular rate and regular rhythm RATE: regular rate RHYTHM: regular rhythm GI: COMMON NORMALS: Normal to inspection, nondistended, normoactive bowel sounds present, Soft to palpation and non-tender PALPATION: Yes Soft to palpation : BLADDER/KIDNEY EXAM: Yes CVA tenderness Back/Pelvis: GENERAL BACK: Yes CVA tenderness CVA tenderness: left LUMBAR SPINE/LOWER BACK: Yes paraspinal muscle spasm Lumbar paraspinal muscle spasm: right Right lumbar paraspinal muscle spasm: L3 and L4, Yes straight leg raise negative bilaterally and Yes bend over test abnormal SACROILIAC JOINTS: Yes SI joints normal Extremity: COMMON NORMALS: normal to inspection, full ROM and capillary refill normal Neuro: COMMON NORMALS: patient oriented x3 Course Vital Signs: Vital signs: Vital Signs Temperature 98.1 F 11/25/24 17:31 Pulse Rate 62 11/25/24 21:53 Respiratory Rate 18 11/25/24 21:53 Blood Pressure 129/101 11/25/24 21:04 Pulse Oximetry 99 11/25/24 21:53 Oxygen Delivery Me thod Room Air 11/25/24 21:53 MDM - Back Pain/Injury Medical Decision Making Patient is a pleasant 49-year-old female presents to the emergency room after a jarring [facility] [employer] [facility]. She had left flank pain, and somewhat atypical presentation. She had paraspinous muscle spasming, however no significant concern for sacroiliitis. On CT, notable was question of avascular necrosis of left femoral head. Will send patient to primary care physician for any additional concerns of MRI. Pain controlled after Toradol and Norflex. Medical Records I reviewed the patient's medical records. Labs I reviewed the patient's lab results. UA without hematuria Radiology Impressions Abdomen/Pelvis CT 11/25/24 19:56 IMPRESSION: No acute uterine localized inflammatory abnormalities present abdomen and pelvis Suspicion of possibility of avascular necrosis of the presentation of left femoral head further workup recommended questionable finding. Laboratory Results Urine Color Yellow (Yellow) 11/25/24 20:05 Urine Appearance Clear (CLEAR) 11/25/24 20:05 Urine pH 7.0 (5-7) 11/25/24 20:05 Ur Specific [place] 1.006 (1.005-1.030) 11/25/24 20:05 Urine Protein Negative (Negative) 11/25/24 20:05 Urine Glucose (UA) Negative (Normal) 11/25/24 20:05 Urine Ketones Negative (Negative) 11/25/24 20:05 Urine Blood Negative (Negative) 11/25/24 20:05 Urine Nitrate Negative (Negative) 11/25/24 20:05 Urine Bilirubin Negative (Negative) 11/25/24 20:05 Urine Urobilinogen 0.2 mg/dL (Negative) 11/25/24 20:05 Ur Leukocyte Esterase Trace (Negative) A 11/25/24 20:05 Urine RBC 0-4 /hpf (0-2) H 11/25/24 20:05 Urine WBC 0-4 /hpf (0-5) H 11/25/24 20:05 Ur Squamous Epith Cells 5-10 /hpf (0-5) H 11/25/24 20:05 Calcium Oxalate Crystal Not Reportable 11/25/24 20:05 Amorphous Sediment Not Reportable 11/25/24 20:05 Urine Bacteria None /hpf (NONE) 11/25/24 20:05 Urine Mucus 1+ /hpf 11/25/24 20:05 All radiology interpretation(s) finalized by discharge Discharge Plan Discharge Patient Disposition: Home Clinical Impression: Avascular necrosis of femur head, left Strain of lumbar region Qualifiers: Encounter type: initial encounter Qualified Code(s): S39.012A - Strain of muscle, fascia and tendon of lower back, initial encounter Condition: Stable Prescriptions: New ketorolac 10 mg tablet 10 mg PO Q8H PRN (Reason: pain) 5 Days Qty: 20 0RF methocarbamol 750 mg tablet 750 mg PO Q8H PRN (Reason: muscle spasm) Qty: 30 0RF No Action Probiotic 3 billion cell Capsule 3,000 mmu cells PO DAILY Rx Instructions: administer with a meal epinephrine 0.3 mg/0.3 mL auto-injector 0.3 mg IM Q10M PRN (Reason: anaphylaxis) Qty: 2 0RF Rx Instructions: for 2 doses metoprolol tartrate 25 mg tablet 25 mg PO DAILY Qty: 30 0RF meclizine 50 mg tablet 50 mg PO BID PRN (Reason: dizziness) Qty: 14 0RF Discharge Orders: Discharge ED (Routine); Ordered 11/25/24 Ordered By: Zoila Gonsalez Discharge Diet: Usual diet Patient Instructions: Back Pain (ED), Core Strengthening Exercises (ED), Patient Portal & Kyle Instructions Activity Restrictions/Additional Instructions: - Your medications: Ketorolac/Toradol, methocarbamol/Robaxin have been sent to your pharmacy of choice. Use cautiously. With ketorolac/Toradol, famotidine/Pepcid is helpful to avoid any additional issues with ulcers of the stomach, or inflammation. Obtain [id number]. -You will need further follow-up with your primary care physician regarding today's evaluation with your left hip.: There is concern of what is called avascular necrosis of your femur head (hip) this will need to be further evaluated on an outpatient basis/nonemergent basis. - Return to the ED if you have worsening pain, fever greater than 100.4 ?F Print Language: [place] Coding Level of Care Code ED Cost Specialist for Sima Werner
[2024-11-25 20:10] LABS: Glucose Urine UA Negative (Normal); Nitrate Urine Negative (Negative); Specific Gravity, Urine 1.006 (1.005-1.030)
[2024-11-25 20:20] LABS: Add Urine Microscopic? YES
[2024-11-25 21:04] VITALS: BP 129/101; PULSE 88; RESP 16; O2SAT 98
[2024-11-25] MEDS: orphenadrine 30 mg/mL Inj 2 mL 60 MG IM (21:06)
[2024-11-25 21:53] VITALS: PULSE 62; RESP 18; O2SAT 99
--- NOTE | 2024-11-26 10:42 | DCPLANNER ---
messaged fm to establish with PCP.
== END 2024-11-25 22:27 | disposition home or self-care (01) ==
PROVIDERS: Emergency Provider Physician Assistant
DX: M87.852 Other osteonecrosis, left femur (principal); S39.012A Strain of muscle, fascia and tendon of lower back, initial encounter; I10 Essential (primary) hypertension; X58.XXXA Exposure to other specified factors, initial encounter
CPT/HCPCS: 74176; 81001; 96372; 99284; J1885; J2360